=== PATIENT | male | born 1935 | race Caucasian/White ===

== ENCOUNTER → 2018-04-21 | Outpatient (REF) | payer MEDICARE, BC ==
[2018-04-21 09:03] LABS: TSH, 3RD GENERATION 1.99 uIU/mL (0.47 - 4.68)
== END | disposition home or self-care (01) ==
LOC: LAB 06:39
PROVIDERS: ATTEND Nurse Practitioner Family
DX: E03.9 Hypothyroidism, unspecified (principal); N18.3 Chronic kidney disease, stage 3 (moderate)

== ENCOUNTER 2020-06-27 17:41 | Emergency (ER) | payer MEDICARE, BC ==
[2020-06-27] MEDS ORDERED: ALLOPURINOL100 MG PO (18:30)
[2020-06-27] MEDS ORDERED: FUROSEMIDE20 MG PO (18:30)
[2020-06-27] MEDS ORDERED: DILTIAZEM90 M1 PO (18:31)
[2020-06-27] MEDS ORDERED: METOPROL TAR25 MG PO (18:31)
[2020-06-27] MEDS ORDERED: LEVOTHYROXIN50 MCG PO (18:31)
[2020-06-27] MEDS ORDERED: TAMSULOSIN HCL0.4 MG PO (18:32)
[2020-06-27] MEDS ORDERED: ALPRAZOLAM0.5 MG PO (18:32)
[2020-06-27] MEDS ORDERED: WARFARIN2 MG PO (18:33)
[2020-06-27 18:37] LABS: HEMATOCRIT 34.7 % (39.0-50.0); HEMOGLOBIN 10.9 g/dl (14.0-18.0); IMMATURE GRANULOCYTES 0.6 % (0.0-5.0); MEAN CELL VOLUME 93.8 fL CALC (80.0-100.0); MEAN CORPUSCULAR HGB 29.5 pG CALC (26.0-32.0); MEAN CORPUSCULAR HGB CONC 31.4 g/dL CAL (32.0-36.0); NEUT# 6.79 thou/uL (1.82-7.42); RED BLOOD COUNT 3.7 mill/uL (4.70-6.10); RED CELL DISTRI WIDTH 13.7 % (11.5-15.5)
[2020-06-27 18:50] LABS: BILIRUBIN, TOTAL 0.5 mg/dL (0.0-1.4); CREATININE 2.3 mg/dL (0.7-1.3); POTASSIUM 4.1 mmol/l (3.5-5.1)
[2020-06-27 18:51] LABS: ALBUMIN 4.4 g/dL (3.2-5.0); TOTAL PROTEIN 8.3 g/dL (6.3-8.2)
[2020-06-27 18:56] LABS: ACT PARTIAL THROMBO TIME 23.2 SECONDS (20.0-32.5); INTERNATIONAL NORMALIZED RATIO 1.2 RATIO (0.7-1.3); PROTHROMBIN TIME 12.4 SECONDS (9.0-12.5)
[2020-06-27 20:52] VITALS: BP 182/77
== END 2020-06-27 21:22 | disposition home or self-care (01) ==
LOC: ED 17:41
DX: S00.03XA Contusion of scalp, initial encounter (principal); S00.01XA Abrasion of scalp, initial encounter; S16.1XXA Strain of muscle, fascia and tendon at neck level, initial encounter; S20.229A Contusion of unspecified back wall of thorax, initial encounter; W01.0XXA Fall on same level from slipping, tripping and stumbling without subsequent striking against object, initial encounter; Y93.89 Activity, other specified; Y92.009 Unspecified place in unspecified non-institutional (private) residence as the place of occurrence of the external cause; Z87.81 Personal history of (healed) traumatic fracture; Z95.5 Presence of coronary angioplasty implant and graft

== ENCOUNTER 2023-09-26 12:23 | Emergency (ER) | payer MEDICARE, BC ==
[2023-09-26] VITALS (15 sets, daily range): BP systolic 126–166; BP diastolic 49–97
[~2023-09-26] VITALS: Ht 180.3 cm; Wt 90.7 kg
[~2023-09-26 12:23] MED LIST: ALLOPURINOL100 MG PO; ALPRAZOLAM0.5 MG PO; DILTIAZEM90 M1 PO; FUROSEMIDE20 MG PO; LEVOTHYROXIN50 MCG PO; METOPROL TAR25 MG PO; TAMSULOSIN HCL0.4 MG PO; WARFARIN2 MG PO
[2023-09-26] MEDS ORDERED: MORPHINE SULFATE 4 MG/ML VIAL IV ONE ×2 (12:45→16:35)
[2023-09-26] MEDS ORDERED: ONDANSETRON HCl 4 MG/2 ML SDV IV ONE (12:45)
[2023-09-26 12:51] LABS: BASO% 0.1 % (0-3); HEMATOCRIT 32.1 % (39.0-50.0); HEMOGLOBIN 10.3 g/dl (14.0-18.0); IMMATURE GRANULOCYTES 0.6 % (0.0-5.0); LYMPH% 14.7 % (15-41); MEAN CELL VOLUME 97.6 fL CALC (80.0-100.0); MEAN CORPUSCULAR HGB 31.3 pG CALC (26.0-32.0); MEAN CORPUSCULAR HGB CONC 32.1 g/dL CAL (32.0-36.0); MONO% 7.5 % (2-13); NEUT# 6.96 thou/uL (1.82-7.42); NEUT% 75.1 % (42-76); RED BLOOD COUNT 3.29 mill/uL (4.70-6.10); RED CELL DISTRI WIDTH 15.6 % (11.5-15.5)
[2023-09-26 13:13] LABS: ALKALINE PHOSPHATASE 95 u/l (38-126); ANION GAP 11 (6-22 (CALC)); BILIRUBIN, TOTAL 0.6 mg/dL (0.2-1.3); BUN 49 mg/dL (8-23); BUN/CREATININE RATIO 24 (12-20 (CALC)); CARBON DIOXIDE 22 mmol/l (22-30); CHLORIDE 113 mmol/l (95-108); ESTIMATED GFR 32 ML/MIN (>=90 (CALC)); POTASSIUM 4.6 mmol/l (3.5-5.1); SGOT/AST 30 u/l (19-48); SODIUM 140 mmol/l (137-146); TOTAL PROTEIN 7.3 g/dL (6.3-8.2)
[2023-09-26] MEDS ORDERED: DILT-XR120 MG PO (14:13)
[2023-09-26] MEDS ORDERED: MECLIZINE25 MG PO (14:14)
[2023-09-26] MEDS ORDERED: TRAMADOL HCL50 MG PO (14:15)
[2023-09-26] MEDS ORDERED: BISOPROL FUM5 MG PO (14:16)
[2023-09-26] MEDS ORDERED: PRAVASTATIN40 MG PO (14:17)
[2023-09-26] MEDS ORDERED: ESCITALOPRAM OX20 MG PO (14:18)
[2023-09-26] MEDS ORDERED: BENZONATATE150 MG PO (14:19)
== END 2023-09-26 17:36 | disposition home or self-care (01) ==
LOC: ED 12:23
PROVIDERS: Family Medicine
DX: S42.031A Displaced fracture of lateral end of right clavicle, initial encounter for closed fracture (principal); H81.09 Meniere's disease, unspecified ear; W17.89XA Other fall from one level to another, initial encounter; Z95.5 Presence of coronary angioplasty implant and graft